=== PATIENT | female | born 1945 | race Caucasian/White ===

== ENCOUNTER 2016-08-07 11:00 | Inpatient (IN) | payer MEDICARE, BC ==
[~2016-08-07] VITALS: Ht 172.7 cm; Wt 96.8 kg
--- NOTE | ~2016-08-07 | DS ---
PATIENT'S NAME: MCKINNEY [facility] AGE: 71 Y [address] [place]OM: [facility] [place], [place] [address] LOCATION: [facility] ADMIT DATE: 08/21/2016 Discharge Summary DISCHARGE DATE: 08/23/2016 FAMILY PHYSICIAN: Jesse Madrid MD ATTENDING PHYSICIAN: Darren Bravo PRIMARY DIAGNOSIS: Degenerative joint disease of the left knee. SECONDARY DIAGNOSES: 1. History of conversion disorder. 2. History of seizure. 3. History of panic attack. PROCEDURE PERFORMED: Left total knee arthroplasty with computer navigation. HISTORY: The patient is a 71-year-old female, who presents with advanced left knee degenerative joint disease and associated severely compromised activities of daily living. The patient has decided to proceed with total knee arthroplasty after having been thoroughly counseled regarding the risks, benefits, limitations and alternatives. Please refer to the outpatient clinic notes and admission history and physical for this patient. HOSPITAL COURSE: The patient underwent a left total knee arthroplasty on 08/21/2016 without complications. Spinal anesthesia plus adductor canal block plus periarticular local anesthesia was utilized. The patient received 24 hours of perioperative prophylactic antibiotics and remained hemodynamically stable, neurovascularly intact throughout the entire hospital course. The postoperative prophylactic deep venous thrombosis prophylaxis consisted of Xarelto 10 mg, early mobilization and pneumatic compression devices. Daily physical therapy for gait training, transfer training range of motion and quadriceps isometric exercises were received. The patient progressed well in physical therapy. On the date of discharge, 08/23/2016, the incision at the knee was healing well and showed no signs of infection. DISPOSITION: Home. DISCHARGE ACTIVITY: The patient is to bear weight as tolerated with range of motion and quadriceps isometric exercises as instructed. The operative extremity is to be elevated at least 90% of the day. There is to be sterile 4x4 gauze dressings to the incision daily. Dr. Bravo is to be notified immediately if there is any increased pain, fevers, chills erythema or drainage. DISCHARGE MEDICATIONS: 1. Xarelto 10 mg take 1 tab p.o. daily for DVT prevention. PATIENT'S NAME: DANIEL [facility] AGE: 71 Y [address] ROOM: [address] [address] LOCATION: [facility] ADMIT DATE: 08/21/2016 Discharge Summary DISCHARGE DATE: 08/23/2016 FAMILY PHYSICIAN: Jesse Madrid MD ATTENDING PHYSICIAN: Darren Bravo 2. Dilaudid 2 mg, take 1 to 2 tablets p.o. every 4 hours as needed for pain. FOLLOWUP: Followup appointment is to be with Dr. Bravo on Sunday August 28, 2016, for initial postoperative evaluation and x-rays at that time. REGINE CAO FOR DARREN BRAVO MD TLB/modl /[id number] d: 09/02/162 t: 09/05/16 1512, DISCHARGE SUMMARY
--- NOTE | ~2016-08-07 | OR ---
PATIENT'S NAME: CHARLETTE SANCHEZARA Christopher [facility] AGE: 71 Y [address] ROOM: [facility] [place], [place] [address] LOCATION: [facility] ADMIT DATE: 08/21/2016 OR/Procedure Report DISCHARGE DATE: FAMILY PHYSICIAN: Jesse Madrid MD ATTENDING PHYSICIAN: DARREN JAMISON SURGEON: Darren Jamison MD BANKING SPECIALIST: REGINE Eaton and Darren Potts. DATE OF PROCEDURE: 08/21/2016 PRE-OP DIAGNOSIS: Degenerative joint disease left knee. POST-OP DIAGNOSIS: Degenerative joint disease left knee. OPERATION: Left total knee arthroplasty with computer navigation. ANESTHESIA: Spinal anesthesia plus adductor canal block plus periarticular local anesthesia (ropivacaine with epinephrine). ESTIMATED BLOOD LOSS: Less than 10 mL. DRAIN: None. SPECIMEN: None. COMPLICATIONS: None. IMPLANT SYSTEM: Mary Lou Triathlon. Size 5, left posterior stabilized femoral component Size 4 universal modular tibial tray 13 mm posterior stabilized size 4 3 tibial polyethylene insert 32 mm oval X3 patella component. INDICATIONS FOR SURGERY: Kendal Sanchez is a 71 year old female who presents with advanced left knee degenerative joint disease and associated severely compromised activities of daily living. The patient has decided to proceed with knee replacement after having been thoroughly counseled regarding the associated risks, benefits, and limitations. We have specifically reviewed the risks and implications of infection, deep venous thrombosis, pulmonary embolism, mortality, neurovascular complications, blood transfusion (and associated potential for disease transmission or transfusion reaction), stiffness, instability, mechanical deterioration of the components (due to wear and or loosening), and the potential need for revision. We have also emphasized the importance of active involvement and compliance with post- operative physical therapy as a means of optimizing range of motion and functional recovery. Informed consent has been granted. PATIENT'S NAME: CHARLETTE SANCHEZARA Christopher [facility] AGE: 71 Y [address] ROOM: [facility] [place], [place] [address] LOCATION: [facility] ADMIT DATE: 08/21/2016 OR/Procedure Report DISCHARGE DATE: FAMILY PHYSICIAN: Jesse Madrid MD ATTENDING PHYSICIAN: DARREN JAMISON DESCRIPTION OF PROCEDURE: The patient was positioned supine after administration of anesthesia and prophylactic antibiotics. A well-padded pneumatic tourniquet was placed around the left proximal thigh, and the left lower extremity was prepped and draped with vigilant sterile technique. The patient's name as well as the intended operative side and procedure were confirmed with a verbal time-out involving myself, the circulating nurse, the scrub nurse, and the anesthesiologist. Examination under anesthesia demonstrated no active skin lesions or masses. There was a large effusion. There was no erythema. There was no abnormal warmth. Range of motion under anesthesia was from 5 degrees of passive hyperextension to 130 degrees of flexion. There was 2 mm of lateral collateral ligament laxity. There was no other ligamentous laxity. The left lower extremity was elevated and exsanguinated with an Esmarch wrap, and the pneumatic tourniquet was inflated to 300mmHg. The knee was approached through a longitudinal midline incision. A medial parapatellar arthrotomy was performed and the patella was everted. Examination of the joint space demonstrated a large amount of benign-appearing translucent synovial fluid. Cruciate ligaments were intact. There were moderate-sized osteophytes at the intercondylar notch. There was generalized nonproliferative synovitis. There was full-thickness loss of articular cartilage involving the anteromedial two thirds of the medial tibial plateau and 80% of the medial femoral condyle. In addition, there was 5 x 15 mm region of full-thickness articular cartilage loss at the central aspect of the patella with surrounding high-grade partial thickness articular cartilage loss throughout the majority of the apex of the patella. There was 1 cm region of full-thickness articular cartilage loss at the medial half of the femoral trochlea. There was 1 x 2 cm region of full- thickness articular cartilage loss at the lateral half of the femoral trochlea. There was a small osteophyte at the medial aspect of the femoral trochlea. There were moderate-sized osteophytes at the lateral aspect of the femoral trochlea in the medial femoral condyle. There was a small osteophyte at the medial tibial plateau. There were grade II degenerative changes of the lateral femoral condyle. There were mild grade III degenerative changes involving a 1 x 2 cm region at the medial aspect of the lateral tibial plateau. There was extensive complex degenerative tearing of the remnant of the medial meniscus. There was mild inner perimeter tearing of the lateral meniscus. Remnants of the menisci and cruciate ligaments were excised. The [employer] navigation femoral tracker was pinned in place at the distal aspect of the femoral trochlea. Absence of motion between the femur and the tracking device was confirmed manually and visually. Femoral osseous landmarks were PATIENT'S NAME: KENDAL SANCHEZ [facility] AGE: 71 Y [address] ROOM: [id number] [place], [place] [address] LOCATION: [facility] ADMIT DATE: 08/21/2016 OR/Procedure Report DISCHARGE DATE: FAMILY PHYSICIAN: Jesse Madrid MD ATTENDING PHYSICIAN: DARREN JAMISON in order to calibrate the computer navigation system. Landmarks included the center of rotation of the ipsilateral hip, the center-point of the distal femur, the femoral AP axis, 57 points on the medial femoral condyle articular surface, and 57 points on the lateral femoral condyle articular surface. The [employer] computer navigation system was subsequently utilized to position the distal femoral resection block such that the distal femoral resection was performed perfectly perpendicular to the femoral mechanical axis. The distal femoral resection was performed with a SWYF oscillating saw. The SnackFeed computer navigation tibial tracker was pinned in place at the anterior aspect of the tibial plateau. Absence of motion between the tibia and the tracking device was confirmed manually and visually. Tibial osseous landmarks were obtained in order to calibrate the computer navigation system. Landmarks included the center-point of the tibial plateau, the AP tibial axis, 57 points on the medial tibial plateau articular surface, 57 points on the lateral tibial plateau articular surface, the medial malleolus, and the lateral malleolus. The [employer]Feed computer navigation system was subsequently utilized to position the proximal tibial resection block such that the proximal tibial resection was performed perfectly perpendicular to the tibial mechanical axis. The proximal tibial resection was performed with a [employer] Precision oscillating saw. Perpendicularity of the tibial resection with respect to the tibial shaft axis was reconfirmed by inserting a spacer- block attached to an extramedullary guide delroy. External rotation of the anterior and posterior femoral resections was set parallel to the epicondylar axis and carefully adjusted in order to create a rectangular flexion gap. The box resection was performed with a reciprocating saw. Anterior and posterior chamfer resections were performed with the oscillating saw. Posterior condyle osteophytes were excised with an osteotome. All other osteophytes were excised with a rongeur. Resection of all remnants of the menisci was reconfirmed. Flexion and extension gaps were confirmed to be symmetric and well balanced with a spacer-block technique. The patella resection was performed with an oscillating saw such that the composite thickness of the reconstructed patella was equivalent to the thickness of the [place] patella. Patella tracking was confirmed to be optimal. A limited lateral retinacular release was required in order to optimize patellar tracking. All trial components were removed and all prepared osseous surfaces were thoroughly irrigated with pulsatile saline lavage and dried prior to cementing all three components in a single stage using [place] Simplex cement containing pre-mixed tobramycin. All extruded excess cement was removed. The entire joint space was thoroughly inspected and thoroughly irrigated with PATIENT'S NAME: KENDAL SANCHEZ [facility] AGE: 71 Y [address] ROOM: [address] [address] LOCATION: [facility] ADMIT DATE: 08/21/2016 OR/Procedure Report DISCHARGE DATE: FAMILY PHYSICIAN: Jesse Madrid MD ATTENDING PHYSICIAN: DARREN JAMISON bacteriostatic pulsatile saline lavage to assure that there was no residual debris of any sort. Final range of motion was from full extension (with no passive hyperextension) to with 130 degrees of flexion. Patella tracking was reconfirmed to be optimal. There was very good anteroposterior stability at 90 degrees of flexion. There was less than 1 mm of medial lift-off to valgus stress in full extension. There was less than 1 mm of lateral lift-off to varus stress in full extension. The arthrotomy was closed with multiple simple and [id number] interrupted #1 Vicryl. Subcutaneous tissues were thoroughly re-irrigated with bacteriostatic pulsatile saline lavage. Subcutaneous tissues were re- approximated with simple buried interrupted #0 Vicryl sutures. The skin was closed with simple buried interrupted 2-0 Vicryl sutures followed by surgical arben. The dressing consisted of Xeroform gauze, 4x4 gauze, ABD pads and two 6-inch Karri Wraps. There were no intra-operative complications. It should be noted that the physician's assistant manager of operations played an active, integral role throughout this entire operation. By providing expert retraction, they greatly facilitated and expedited safe and effective exposure of the distal femur, proximal tibia and patella for preparation and implantation of the components. They were also actively involved in the patient's positioning, prepping and draping, as well as wound closure. MD FREDA MONTENEGRO/[place] /[id number] d: 08/21/16 1508 t: 08/24/16 2222, OPERATIVE SUMMARY
[2016-08-07] MEDS ORDERED: ARTIFICIAL TEAR15 ML OPHTH (11:45)
[2016-08-07] MEDS ORDERED: EFFEXOR75 MG PO (11:46)
[2016-08-07] MEDS ORDERED: LEVOTHROID (S150 MCG PO (11:46)
[2016-08-07] MEDS ORDERED: OCUVITE WITH L1 EACH PO (11:46)
[2016-08-07] MEDS ORDERED: VITAMIN C1000 MG PO (11:46)
[2016-08-07] MEDS ORDERED: OSTEO BI-FLEX1 EAC1 PO (11:47)
[2016-08-07] MEDS ORDERED: COLACE100 MG PO (11:47)
[2016-08-07] MEDS ORDERED: FISH OIL 1,2001 EAC1 PO (11:47)
[2016-08-07] MEDS ORDERED: XANAX0.25 MG PO ×2 (11:47)
[2016-08-07] MEDS ORDERED: ALEVE220 MG PO (11:49)
[2016-08-07] MEDS ORDERED: CALCIUM 600 +1 EA10 PO (11:50)
[2016-08-07] MEDS ORDERED: [UNRECOGNIZED DRUG - OTHER] PO (11:50)
[2016-08-07] MEDS ORDERED: ASPIRIN LO-DOSE81 MG PO (11:50)
[2016-08-07] MEDS ORDERED: METAMUCIL POWD575 G1 PO (11:52)
[2016-08-07] MEDS ORDERED: BIOTIN5000 MCG PO (11:53)
[2016-08-07] MEDS ORDERED: VITAMIN B-121000 MCG PO (11:53)
[2016-08-07] MEDS ORDERED: RISPERDAL2 MG PO (11:53)
[2016-08-07] MEDS ORDERED: CENTRUM SILVER1 EAC4 PO (11:53)
[2016-08-07] MEDS ORDERED: DESYREL50 MG PO (11:54)
[2016-08-07] MEDS ORDERED: DULCOLAX5 MG PO (11:54)
[2016-08-07] MEDS ORDERED: ZOCOR20 M1 PO (11:54)
[2016-08-07] MEDS ORDERED: PHILLIPS500 MG PO (11:54)
[2016-08-07] MEDS ORDERED: TYLENOL ARTHRI650 MG PO (11:55)
[2016-08-07] MEDS ORDERED: HYDROCHLOROTHIA25 MG PO (11:55)
[2016-08-07] MEDS ORDERED: ULTRAM50 MG PO (11:55)
[2016-08-07] MEDS ORDERED: FLONASE 50 MCG/16 GM NOSE (11:56)
[2016-08-21] MEDS ORDERED: [UNRECOGNIZED DRUG - OTHER] PO (06:18)
--- NOTE | 2016-08-21 14:30 | NUR ---
Introduced self/role to patient and her sister. She lives in [place]. She has lined up someone to be with her at nights and several different people arranged to come and stay with her during the day. She denied the need for any DME. She wondered about HHC for bathing. We discussed this, the other options are sponge bath for a short term while and washing her hair in the sink. She thought that would work. Questioned HHC for therapies? Explained it was always best to go to outpatient when possible as she would have access to all the equipment. She stated that would not be an issues, it is only 4 blocks away. She had no barriers to discharge. Added my name to her marker board, will continue to follow. I am not going to pursue HHC at this time.
[2016-08-21 15:49] LABS: CALCIUM 9.1 mg/dL (8.5-10.5); MAGNESIUM 2.2 mg/dL (1.8-2.6)
--- NOTE | 2016-08-21 16:46 | NUR ---
Significant Event: From PACU at 1030. Ambulates with one assist, gait belt and walker. Dressing C/D/I. Ez wrap ice at all times. Voids without difficulty per bedside commode. Dilaudid 2mg and Tylenol 1000mg for pain control, see eMAR for times. Xanax 0.25mg routine for anxiety conrtol. CSM WNL. Titrated to room air. Follow up:
--- NOTE | 2016-08-21 17:19 | NUR ---
Introduced self/role to patient and brother/sister in room. Patient attended the preop class with her brother. Reports she lives alone in one level home in [place]. Sister will help upon return home. Has bath seat, elevated toilet, wall mounted grab bar, long shoe horn, sfdc solution architect and hand held shower head. Reviewed and encouraged use of IS. Demonstrates with excellent technique. Encouraged foot pumps. Has pneumatics and TEDs on bilat. Will follow and assist with identified needs.
--- NOTE | 2016-08-22 04:53 | NUR ---
Significant Event: Dressing is clean, dry and intact. CSM WNL. Voids without difficulty. 1 assist with transfers. Last Dilaudid at 0254. On room air. Takes scheduled Xanax. Follow up:
[2016-08-22 05:23] LABS: HEMATOCRIT 36.1 % (33.0-46.0); HEMOGLOBIN 12.1 g/dL (10.0-15.0)
--- NOTE | 2016-08-22 17:31 | NUR ---
PT UP TO BR AT 1000 WITH PT ASSIST. PT BECAME LIGHT HEADED AND REPORTED SHE WAS GOING TO PASS OUT. ASSISTED TO CHAIR X3 STAFF. VS TAKEN AT THIS TIME. LOWEST BP 83/41 HR 45. BP RECOVERED TO 107/56 HR 60. COLD WASH CLOTH APPLIED TO FOREHEAD. PA AT BEDSIDE. SINCE THEN, PT STATES FEELING BETTER, DENIES LIGHT HEADEDNESS. PT NOTED TO REPEAT CONVERSATION, IS FORGETFUL. EASILY REDIRECTED. ICE APPLIED TO LEFT KNEE. DRESSING CLEAN DRY AND INTACT. CSM'S WNL. DILAUDID GIVEN AROUND 1330. TYLENOL GIVEN AROUND 1715.
--- NOTE | 2016-08-22 17:48 | NUR ---
I was preceptor for student nurse Vania Robertson this shift and I agree with her charting
--- NOTE | 2016-08-23 03:53 | NUR ---
Significant Event: A/O X 3. IV SALINE LOCKED. SAT UP IN RECLINER CHAIR. AMBULATED TO BR WITH GAITBELT AND WALKER, DOES GOOD WITH ONE ASSIST. VOIDS LARGE AMOUNTS. ACEWRAP DRSG TO LEFT KNEE DRY-INTACT, EZ-WRAP TO LEFT KNEE. MINIMAL AMOUNT OF PAIN. ON ROUTINE SCHEDULED TYLENOL X STRENGTH. HAD DILAUDID FOR PAIN. FOOT PUMPS TO FEET, LAURIE HOSE OFF AT HS. Follow up:
[2016-08-23] MEDS ORDERED: TYLENOL EXTRA500 MG PO (11:11)
[2016-08-23] MEDS ORDERED: PEPCID20 MG PO (11:12)
[2016-08-23] MEDS ORDERED: NEURONTIN300 MG PO (11:13)
[2016-08-23] MEDS ORDERED: MIRALAX17 GM PO (11:14)
[2016-08-23] MEDS ORDERED: XARELTO10 MG PO (11:15)
[2016-08-23] MEDS ORDERED: SENOKOT8.6 MG PO (11:17)
[2016-08-23] MEDS ORDERED: DILAUDID 2MG(HYD2 MG PO (11:19)
[2016-08-23] MEDS ORDERED: CELEBREX200 MG PO (11:19)
--- NOTE | 2016-08-23 13:40 | NUR ---
Patient was AOx3. VSS. CSM WNL. Dressing to L) knee was clean,dry,and intact. Dilaudid given for pain. Patient was throughly explained her discharge instructions and which new meds she would be starting. Patient was instructed not to take NSAIDS until finished with xerelto. Patient was wheeled out by student at 1330 for dismissal home with friend.
--- NOTE | 2016-08-23 15:18 | NUR ---
I reviewed Star's documentation and approve on 08/23/16 at 1520.
== END 2016-08-23 15:52 | disposition disaster alternative care site (69) | DRG 470 ==
LOC: G3N 08-21 05:06
PROVIDERS: Hospitalist; Physician Assistant Surgical; ADMIT Orthopaedic Surgery
PROC: 0SRD0J9 Replacement of Left Knee Joint with Synthetic Substitute, Cemented, Open Approach (ICD-10-PCS; principal; 2016-08-21)
PROC: 8E0YXBZ Computer Assisted Procedure of Lower Extremity (ICD-10-PCS; 2016-08-21)
DX: M17.12 Unilateral primary osteoarthritis, left knee (principal); F32.9 Major depressive disorder, single episode, unspecified; F41.9 Anxiety disorder, unspecified; E03.9 Hypothyroidism, unspecified; K59.00 Constipation, unspecified; E78.5 Hyperlipidemia, unspecified; J30.2 Other seasonal allergic rhinitis; F44.9 Dissociative and conversion disorder, unspecified
CPT/HCPCS: C1713; C1776; J0690; J1100; J1885; J2250; J2405; J2795; J7120

== ENCOUNTER → 2016-08-10 | Outpatient (CLI) | payer MEDICARE, BC ==
[~2016-08-10] MED LIST: ALEVE220 MG PO; ARTIFICIAL TEAR15 ML OPHTH; ASPIRIN LO-DOSE81 MG PO; BIOTIN5000 MCG PO; CALCIUM 600 +1 EA10 PO; CELEBREX200 MG PO; CENTRUM SILVER1 EAC4 PO; COLACE100 MG PO; DESYREL50 MG PO; DILAUDID 2MG(HYD2 MG PO; DULCOLAX5 MG PO; EFFEXOR75 MG PO; FISH OIL 1,2001 EAC1 PO; FLONASE 50 MCG/16 GM NOSE; HYDROCHLOROTHIA25 MG PO; LEVOTHROID (S150 MCG PO; METAMUCIL POWD575 G1 PO; MIRALAX17 GM PO; NEURONTIN300 MG PO; OCUVITE WITH L1 EACH PO; OSTEO BI-FLEX1 EAC1 PO; PEPCID20 MG PO; PHILLIPS500 MG PO; RISPERDAL2 MG PO; SENOKOT8.6 MG PO; TYLENOL ARTHRI650 MG PO; TYLENOL EXTRA500 MG PO; ULTRAM50 MG PO; VITAMIN B-121000 MCG PO; VITAMIN C1000 MG PO; XANAX0.25 MG PO; XARELTO10 MG PO; ZOCOR20 M1 PO; [UNRECOGNIZED DRUG - OTHER] PO; [UNRECOGNIZED DRUG - OTHER] PO
== END | disposition disaster alternative care site (69) ==
LOC: GNJRC 09:57
DX: Z01.812 Encounter for preprocedural laboratory examination (principal); M17.12 Unilateral primary osteoarthritis, left knee